=== PATIENT | male | born 1960 | race Caucasian/White ===

== ENCOUNTER 2017-12-03 20:34 | Emergency (ER) | payer SELFPAY ==
[~2017-12-03 20:34] MED LIST: ADV250/50 INH; ALBU8.5H12 IH; CYC10 PO; LISI-368 PO; METXR500 PO; TRA50 PO; TRAM100T22 PO
[2017-12-03] MEDS ORDERED: BUDE10.25 IH (20:42)
[2017-12-03] MEDS ORDERED: TRAM-420 PO (21:04)
[2017-12-03] MEDS ORDERED: traMADol 50 MG TAB PO ONE (21:05)
[2017-12-03] MEDS ORDERED: traMADol 50 MG TAB TH 2 TAB/BOTTLE PO ONE (21:05)
[2017-12-03] MEDS ORDERED: ACETAMINOPHEN 500 MG TAB PO ONE (21:05)
--- NOTE | 2017-12-03 21:05 | ER Report ---
History and Physical Time Seen By MD: 20:50 Hx. of Stated Complaint: PATIENT STATES HE HAS BEEN HAVING PAIN THAT STARTS IN HIS RIGHT BUTTOCK AND RADIATES DOWN HIS RIGHT LEG TO HIS RIGHT FOOT. PATIENT STAES IT STARTED 2DAYS AGO. HPI/ROS CHIEF COMPLAINT: back pain HISTORY OF PRESENT ILLNESS: Patient has history of lumbar back pain. States that 2 days ago he developed intermittent right gluteal pain radiating down right leg which has been constant for the past day. Patient states pain is severe. He denies weakness or numbness. Patient has not had similar pain in the past. Patient denies recent trauma or injury. Patient has been taking ibuprofen Profen 800 mg every 6-8 hours without relief. He has not tried other medications. He is [employer] truck driver. He denies incontinence, perineal anesthesia. REVIEW OF SYSTEMS: Constitutional: No fever, no chills. Eyes: No discharge. ENT: No sore throat. Cardiovascular: No chest pain, no palpitations. Respiratory: No cough, no shortness of breath. Gastrointestinal: No abdominal pain, no vomiting. Genitourinary: No hematuria. Musculoskeletal: above Skin: No rashes. Neurological: No headache. Allergies: Coded Allergies: No Known Drug Allergies (Unverified , 12/03/17) Home Meds Active Scripts Tramadol Hcl (TRAMADOL HCL) 50 Mg Tablet, 50 MG PO Q6H PRN for PAIN, #12 TAB 0 Refills Prov:MADINA ROSE MD 12/03/17 Reported Medications Budesonide/Formoterol Fumarate (SYMBICORT 80-4.5 MCG INHALER) 10.2 Gm Hfa.aer.ad, 1 PUFF IH BID 12/03/17 Albuterol Sulfate (Albuterol Sulfate Hfa) 8.5 Gm Hfa.aer.ad, 8.5 GM IH PRN 05/30/11 Metformin Hcl (Metformin Er) 500 Mg Tab.sr.24h, 1000 MG PO BID 05/30/11 Lisinopril (Lisinopril) 20 Mg Tablet, 20 MG PO BID 05/30/11 Discontinued Reported Medications Cyclobenzaprine Hcl (Flexeril) 10 Mg Tab, 10 MG PO TID, #30 02/22/12 Tramadol Hcl (Ultram) 50 Mg Tab, 50 MG PO Q4-6H 02/22/12 Salmeterol Xinaf/Fluticasone (Advair 250/50 Diskus) 250 Mcg/50 Mcg Inh, 1 PUFF INH BID 1 PUFF 05/30/11 Hx Smoking: Yes (3 CIGARS/DAY) Hx Substance Use Disorder: No Hx Alcohol Use: No Constitutional Vital Sign - Last 24 Hours 12/03/17 20:38 Temp 98.1 Pulse 102 Resp 24 B/P (MAP) 156/114 Pulse Ox 92 O2 Delivery Room Air Physical Exam General Appearance: [The patient is alert, has no immediate need for airway protection and no signs of toxicity.] [ ] Eyes: Pupils equal and round no pallor or injection. ENT, Mouth: Mucous membranes are moist. Respiratory: There are no retractions, lungs are clear to auscultation. Cardiovascular: Regular rate and rhythm. [ ] Gastrointestinal: Abdomen is soft and non tender, no masses, bowel sounds normal. Neurological: alert, oriented, nad Skin: Warm and dry, no rashes. Musculoskeletal: Neck is supple non tender. lumbar 3-5 ttp without stepoff. R gluteal ttp over sciatica. R + SLR. 5/5 MS, nl sensation in extremity [ ] DIFFERENTIAL DIAGNOSIS: After history and physical exam differential diagnosis was considered for back pain including but not limited to muscular pain, herniated disc, spine fracture, intra-abdominal causes, cauda equina. Medical Decision Making ED Course/Re-evaluation ED Course Patient's exam is consistent with sciatica without evidence of fracture or cauda equina. I discussed at length the acute treatment, prevention, maintenance, and strict return precautions. Will treat with Tylenol and tramadol in the emergency department with short course of tramadol in follow-up. 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 Patient states the truck is broken down for the next 2 days and will only be taking this during this time. Patient understands devyn valle protocol. Decision to Disposition Date: Dec 03, 2017 Decision to Disposition Time: 21:05 Depart Departure Latest Vital Signs Vital Signs Date Time Temp Pulse Resp B/P (MAP) Pulse Ox O2 Delivery O2 Flow Rate FiO2 12/03/17 20:38 98.1 102 24 156/114 92 Room Air Impression: Primary Impression: Sciatica Condition: Improved Disposition: HOME OR SELF-CARE New Scripts Tramadol Hcl (TRAMADOL HCL) 50 Mg Tablet 50 MG PO Q6H PRN for PAIN, #12 TAB 0 Refills Prov: MADINA ROSE MD 12/03/17 Patient Instructions: Sciatica (ED) Problem Qualifiers Primary Impression: Sciatica Laterality: right Qualified Codes: M54.31 - Sciatica, right side MADINA ROSE MD Dec 03, 2017 21:05
[2017-12-03 21:11] VITALS: BP 152/92
== END 2017-12-03 21:16 | disposition home or self-care (01) ==
LOC: ER 20:41
DX: M54.31 Sciatica, right side (principal)
CPT/HCPCS: 99283; C9399